=== PATIENT | female | born 2000 | race Caucasian/White ===

== ENCOUNTER 2024-05-28 08:30 | Emergency (ER) | payer MEDICAID ==
[~2024-05-28] VITALS: Ht 165.1 cm; Wt 95.3 kg
[2024-05-28 08:32] VITALS: BP_SYST 127; PULSE 81; RESP 18; TEMP 97.9; O2SAT 97
== END 2024-05-28 09:42 | disposition home or self-care (01) ==
LOC: SED 08:30
DX: S63.592A Other specified sprain of left wrist, initial encounter (principal); W01.0XXA Fall on same level from slipping, tripping and stumbling without subsequent striking against object, initial encounter; Y93.89 Activity, other specified; Y92.89 Other specified places as the place of occurrence of the external cause; Y99.8 Other external cause status
CPT/HCPCS: 99283